=== PATIENT | female | born 1955 | race Two or more races ===

== ENCOUNTER 2019-09-06 09:02 | Emergency (ER) | payer OTHER ==
[~2019-09-06] VITALS: Ht 160 cm; Wt 72.7 kg
--- NOTE | 2019-09-06 09:23 | PHYS DOC ---
Past Medical History Past Medical History: No Pertinent History Past Surgical History: Drug Use: None General Adult EDM: Chief Complaint: LOWER EXT PAIN HPI: HPI: Patient is a 64 year old female who presents with 1 week history of right knee pain. Patient states the pain is atraumatic. Pain is worse in the knee on the medial aspect currently a 6 out of 10 becomes more severe with range of motion. Pain is described as pain., Radiates to the right calf. There is no fever or focal weakness. Patient does have some numbness around the right knee. Patient states she was here on Monday but there is no records of it. Review of Systems: Review of Systems: Constitutional: Denies fever or chills Eyes: Denies change in visual acuity HENT: Denies sore throat Respiratory: Denies cough or shortness of breath Cardiovascular: Denies chest pain or edema GI: Denies abdominal pain, nausea, vomiting, or diarrhea : Denies dysuria Musculoskeletal: Denies back pain but complains of right knee pain Integument: Denies rash Neurologic: Denies headache or focal weakness Psychiatric: Denies depression or anxiety Heart Score: Risk Factors: Risk Factors: DM, Current or recent (<one month) smoker, HTN, HLP, family history of CAD, obesity. Risk Scores: Score 0 - 3: 2.5% MACE over next 6 weeks - Discharge Home Score 4 - 6: 20.3% MACE over next 6 weeks - Admit for Clinical Observation Score 7 - 10: 72.7% MACE over next 6 weeks - Early Invasive Strategies Physical Exam: PE: Constitutional: Well developed, well nourished, no acute distress, non-toxic appearance. HENT: No trismus Eyes: Conjunctiva clear, EOMI Neck: Normal range of motion, no tenderness, supple, no stridor. [] Cardiovascular: Regular rate/rhythm, peripheral pulse intact, OIL RIG DRILLER intact Lungs & Thorax: No respiratory distress Abdomen: No distension Skin: Diffuse: Intact, no rash Back: Full ROM Extremities: Mild tenderness and minimal swelling to the right knee. No erythema, warmth or significant effusion. Mild pain with range of motion. Neurologic: Alert and oriented X 3, normal motor function, , minimal numbness on the right medial knee. Neurovascular intact distally. Psychologic: Affect normal, judgement normal, mood normal. Current Patient Data: Vital Signs: Vital Signs Date Time Temp Pulse Resp B/P (MAP) Pulse Ox O2 Delivery O2 Flow Rate FiO2 09/06/19 10:14 78 16 132/72 (92) 95 Room Air 09/06/19 09:44 81 16 141/75 (97) 94 Room Air 09/06/19 09:11 98.4 74 16 140/79 (99) 98 Room Air 98.4 EKG: EKG: [] Radiology/Procedures: Radiology/Procedures: [][place] [address] IMAGING REPORT Signed PATIENT: JILLIAN PRO MACCOUNT: [id number] : 1955 LOCATION: ER AGE: 64 SEX: F EXAM STATUS: REG ER ORD. PHYSICIAN: PEREZ TREJO MD REASON: right knee pain no known injury PROCEDURE: KNEE RIGHT 3V AP, oblique, and lateral views of the right knee were obtained. Indication: Right knee pain without injury Comparison: none. Findings: No fracture, dislocation, significant degenerative changes, or effusion is seen. Impression: 1. Unremarkable examination of the right knee. Electronically signed by: Eric Paniagua MD (09/06/2019 9:31 AM) [id number] DICTATED and SIGNED BY: ERIC PANIAGUA MD DATE: 09/06/[address] [address] IMAGING REPORT Signed PATIENT: JILLIAN PRO MACCOUNT: [id number] : 1955 LOCATION: ER AGE: 64 SEX: F EXAM STATUS: REG ER ORD. PHYSICIAN: PEREZ TREJO MD REASON: PAIN PROCEDURE: VENOUS LOWER EXTREMITY RIGHT VENOUS LOWER EXTREMITY RIGHT History: Reason: PAIN / Spl. Instructions: / History: Comparison: None. Discussion: Multiple longitudinal and transverse high resolution real-time images of the venous system of right lower extremity were obtained with color and Doppler sampling. The common femoral, superficial femoral, popliteal and proximal calf veins are all patent and demonstrate normal flow and compressibility. Normal respiratory phasicity and augmentation is present. Impression: 1. No evidence of deep vein thrombosis. Electronically signed by: Charlie Andino DO (09/06/2019 10:25 AM) [id number] DICTATED and SIGNED BY: CHARLIE ANDINO DO DATE: 09/06/19 1025 Course & Med Decision Making: Course & Med Decision Making Pertinent Labs and Imaging studies reviewed. (See chart for details) [] 64-year-old female with atraumatic right knee pain for a week. Patient has no fever, warmth, erythema or or systemic fever. Doubt septic arthritis. Ultrasound is negative. X-rays unremarkable. Patient will follow-up with orthopedist for arthralgias. Dragon Disclaimer: Dragon Disclaimer: This electronic medical record was generated, in whole or in part, using a voice recognition dictation system. Departure Departure Impression: Primary Impression: Right knee pain Disposition: HOME, SELF-CARE Referrals: MISTY SAAB MD 2-3 days Patient Instructions: Arthralgia Additional Instructions: EMERGENCY DEPARTMENT GENERAL DISCHARGE INSTRUCTIONS Thank you for coming to [facility] Emergency Department (ED) today and trusting us with you care. We trust that you had a positivie experience in our Emergency Department. If you wish to speak to the department management, you may call the Director at [phone]. YOUR FOLLOW UP INSTRUCTIONS ARE FOLLOWS: 1. Do you have a private Doctor? If you do not have a private doctor, please ask for a resource list of physicians or clinics that may be able to assist you with follow up care. 2. The Emergency Physicain has interpreted your x-rays. The X-Ray specialist will also review them. If there is a change in the findings, you will be notified in 48 hours when at all possible. 3. A lab test or culture has been done, your results will be reviewed and you will be notified if you need a change in treatment. ADDITIONAL INSTRUCTIONS AND INFORMATION: 1. Your care today has been supervised by a physician who is specially trained in emergency care. Many problems require more than one evaluation for a complete diagnosis and treatment. We recommend that you schedule your follow up appointment as recommended to ensure complete treatment of you illness or injury. If you are unable to obtain follow up care and continue to have a problem, or if your consition worsens, we recommend that you return to the ED. 2. We are not able to safely determine your condition over the phone nor are we able to give sound medical advice over the phone. For these safety reasons, if you call for medical advice we will ask you to come to the ED for further evaluation. 3. If you have any questions regarding these discharge instructions please call the ED at [phone]. SAFETY INFORMATION: In the interest of safety, wellness, and injury prevention; we encourage you to wear your sealbelt, if you smoke; quite smoking, and we encourage family to use a protective helmet for bicycling and other sporting events that present an increased risk for head injury. IF YOUR SYMPTOMS WORSEN OR NEW SYMPTOMS DEVELOP, OR YOU HAVE CONCERNS ABOUT YOUR CONDITION; OR IF YOUR CONDITION WORSENS WHILE YOU ARE WAITING FOR YOUR FOLLOW UP APPOINT MENT; EITHER CONTACT YOUR PRIMARY CARE DOCTOR, THE PHYSICIAN WHOSE NAME AND NUMBER YOU WERE GIVEN, OR RETURN TO THE ED IMMEDIATELY. Scripts Tramadol Hcl (ULTRAM) 50 Mg Tablet 1 TAB PO PRN Q6HRS PRN for pain MDD 4 Tablet(s) for 5 Days, #20 TAB 0 Refills Prov: PEREZ TREJO MD 09/06/19 Justicifation of Admission Dx: Justifications for Admission: Justification of Admission Dx: No PEREZ TREJO MD Sep 06, 2019 09:23
--- NOTE | 2019-09-06 09:35 | RAD ---
AP, oblique, and lateral views of the right knee were obtained. Indication: Right knee pain without injury Comparison: none. Findings: No fracture, dislocation, significant degenerative changes, or effusion is seen. Impression: 1. Unremarkable examination of the right knee. Electronically signed by: Eric Paniagua MD (09/06/2019 9:31 AM) [id number]
[2019-09-06 10:14] VITALS: BP 132/72
--- NOTE | 2019-09-06 10:28 | RAD ---
VENOUS LOWER EXTREMITY RIGHT History: Reason: PAIN / Spl. Instructions: / History: Comparison: None. Discussion: Multiple longitudinal and transverse high resolution real-time images of the venous system of right lower extremity were obtained with color and Doppler sampling. The common femoral, superficial femoral, popliteal and proximal calf veins are all patent and demonstrate normal flow and compressibility. Normal respiratory phasicity and augmentation is present. Impression: 1. No evidence of deep vein thrombosis. Electronically signed by: Charlie Andino DO (09/06/2019 10:25 AM) [id number]
[2019-09-06] MEDS ORDERED: TRAM-48 PO (10:35)
== END 2019-09-06 10:40 | disposition home or self-care (01) ==
LOC: ER 09:02
DX: M25.561 Pain in right knee (principal); R20.0 Anesthesia of skin; R60.0 Localized edema; Z98.890 Other specified postprocedural states
CPT/HCPCS: 73562; 93971; 99284